=== PATIENT | female | born 1945 | race African-American/Black ===

== ENCOUNTER 2021-03-27 12:13 | Inpatient (IN) | payer MEDICARE, MEDICAID ==
[~2021-03-27] VITALS: Ht 165.1 cm; Wt 79.8 kg
[2021-03-27] MEDS ORDERED: AMLODIPINE 5MG TABLET PO ONE ×2 (12:45→15:15)
[2021-03-27 12:56] LABS: BASOPHILS % 0.9 % (0.0-2.0); EOSINOPHILS % 0.6 % (0.0-5.0); HEMATOCRIT. 43.2 % (36.0-48.0); HEMOGLOBIN. 14.5 g/dL (12.0-16.0); LYMPHOCYTES % 21.1 % (20.0-50.0); MEAN CORPUSCULAR HEMOGLOBIN 28.1 pg (28.0-32.0); MEAN CORPUSCULAR VOLUME 83.5 fL (81.0-99.0); MEAN PLATELET VOLUME 9.1 fl (7.4-10.4); MONOCYTES % 8.3 % (2.0-8.0); NEUTROPHILS % 69.1 % (40.0-76.0); PLATELET 166 x1000/uL (130-400); RED BLOOD CELL COUNT 5.17 mill/uL (4.2-5.4)
[2021-03-27 13:10] LABS: CHLORIDE 108 mEq/L (98-107)
[2021-03-27 13:25] LABS: CLARITY URINE CLEAR (CLEAR); COLOR URINE YELLOW (YELLOW); KETONES URINE NEGATIVE (NEGATIVE); LEUKOCYTE ESTERASE URINE NEGATIVE (NEGATIVE); NITRITE URINE NEGATIVE (NEGATIVE); OCCULT BLOOD URINE TRACE (NEGATIVE); PROTEIN URINE 2+ (NEGATIVE); SPECIFIC GRAVITY URINE 1.006 (1.005-1.030); UROBILINOGEN URINE 0.2 E.U./dL (0.2-1.0)
[2021-03-27] MEDS ORDERED: AMLODIPINE 10MG TABLET PO SCH (15:15)
[2021-03-27] MEDS ORDERED: HYDROCODONE/ACETAMINOPHEN 5/325MG TABLET PO PRN (15:15)
[2021-03-27] MEDS ORDERED: DOCUSATE SODIUM 100MG CAPSULE PO PRN (15:15)
[2021-03-27] MEDS ORDERED: ONDANSETRON HCL 4MG/2ML INJ IV PRN (15:15)
[2021-03-27] MEDS ORDERED: MAGNESIUM/ALUMINUM HYDROXIDE/SIMETHICONE 30ML UDC PO PRN (15:15)
[2021-03-27] MEDS ORDERED: GUAIFENESIN 200MG/10ML SUGAR FREE UDC PO PRN (15:15)
[2021-03-27] MEDS ORDERED: ACETAMINOPHEN 325MG TABLET PO PRN (15:15)
[2021-03-27] MEDS ORDERED: AMLODIPINE 5MG TABLET PO NR (15:30)
[2021-03-27] MEDS ORDERED: NALOXONE HCL 0.4MG/ML VIAL IV PRN (15:30)
[2021-03-27] MEDS: LISINOPRIL 40MG TABLET PO SCH (15:45)
[2021-03-27] MEDS: HYDRALAZINE 20MG/ML VIAL IV PRN (20:11)
[2021-03-27] MEDS ORDERED: ENOXAPARIN 40MG/0.4ML SYR SUBCUT SCH (21:00)
[2021-03-28] VITALS (7 sets, daily range): BP systolic 132–161; BP diastolic 66–72
[2021-03-28] MEDS: CLONIDINE 0.1MG TABLET PO PRN (05:09)
[2021-03-28 08:57] LABS: EOSINOPHILS % 0.5 % (0.0-5.0); HEMATOCRIT. 40.9 % (36.0-48.0); HEMOGLOBIN. 13.4 g/dL (12.0-16.0); LYMPHOCYTES % 24.8 % (20.0-50.0); MEAN CORPUSCULAR HEMOGLOBIN 27.2 pg (28.0-32.0); MEAN CORPUSCULAR VOLUME 83.1 fL (81.0-99.0); MEAN PLATELET VOLUME 9.9 fl (7.4-10.4); MONOCYTES % 9.8 % (2.0-8.0); NEUTROPHILS % 63.9 % (40.0-76.0); PLATELET 182 x1000/uL (130-400); RED BLOOD CELL COUNT 4.92 mill/uL (4.2-5.4); RED CELL DISTRIBUTION WIDTH 15.8 % (11.6-14.6)
[2021-03-28] MEDS: AMLODIPINE 10MG TABLET PO SCH (09:54)
[2021-03-28] MEDS: LISINOPRIL 40MG TABLET PO SCH (09:54)
[2021-03-28 11:15] LABS: CHLORIDE 106 mEq/L (98-107)
[2021-03-28 11:28] LABS: HDL CHOLESTEROL 65 mg/dL (40-59); LDL CHOLESTEROL 196 mg/dL (5-100)
[2021-03-28] MEDS ORDERED: PNEUMOCOCCAL 23-VAL P-SAC VAC 0.5 ML IM ONE (12:00)
[2021-03-28] MEDS ORDERED: INFLUENZA VACCINE 05/PF 0.5 ML SYRINGE IM ONE (12:00)
[2021-03-28] MEDS: HYDRALAZINE HCL 10MG TABLET PO SCH ×2 (16:22→20:12)
[2021-03-28] MEDS: ENOXAPARIN 30MG/0.3ML SYR SUBCUT SCH (20:13)
[2021-03-29] MEDS: HYDRALAZINE 20MG/ML VIAL IV PRN (03:31)
[2021-03-29 04:00] VITALS: BP_SYST 157; BP_SYST 169; BP_DIAS 60; BP_DIAS 78
[2021-03-29] MEDS: HYDRALAZINE HCL 10MG TABLET PO SCH (05:30)
[2021-03-29 08:00] VITALS: BP 160/63
[2021-03-29] MEDS: LISINOPRIL 40MG TABLET PO SCH (08:56)
[2021-03-29] MEDS: AMLODIPINE 10MG TABLET PO SCH (08:57)
[2021-03-29] MEDS: LOSARTAN POTASSIUM 100 MG TABLET PO SCH (11:07)
[2021-03-29 12:00] VITALS: BP 168/64
[2021-03-29 13:24] LABS: CHLORIDE 105 mEq/L (98-107)
[2021-03-29] MEDS: HYDRALAZINE HCL 25MG TABLET PO SCH ×2 (13:30→21:16)
[2021-03-29] MEDS: ASPIRIN 81MG TABLET PO SCH (14:41)
[2021-03-29] MEDS: CARVEDILOL 6.25 MG TABLET PO SCH ×2 (14:42→21:16)
[2021-03-29 16:00] VITALS: BP 118/76
[2021-03-29 16:10] LABS: PHOSPHORUS 2.5 mg/dL (2.5-4.9)
[2021-03-29 20:00] VITALS: BP 129/64
[2021-03-29] MEDS: ATORVASTATIN CALCIUM 40MG TABLET PO SCH (21:16)
[2021-03-29] MEDS: ENOXAPARIN 30MG/0.3ML SYR SUBCUT SCH (21:17)
[2021-03-30] VITALS: BP 138/59
[2021-03-30 04:00] VITALS: BP 151/64
[2021-03-30] MEDS: HYDRALAZINE HCL 25MG TABLET PO SCH ×3 (05:52→22:00)
[2021-03-30 07:31] VITALS: BP 181/70
[2021-03-30] MEDS: CARVEDILOL 6.25 MG TABLET PO SCH ×2 (09:03→20:24)
[2021-03-30] MEDS: LOSARTAN POTASSIUM 100 MG TABLET PO SCH (09:03)
[2021-03-30] MEDS: AMLODIPINE 10MG TABLET PO SCH (09:03)
[2021-03-30] MEDS: ASPIRIN 81MG TABLET PO SCH (09:03)
[2021-03-30 11:46] VITALS: BP 101/53
[2021-03-30 16:00] VITALS: BP 122/54
[2021-03-30 20:00] VITALS: BP 152/89
[2021-03-30] MEDS: ATORVASTATIN CALCIUM 40MG TABLET PO SCH (20:24)
[2021-03-30] MEDS: ENOXAPARIN 30MG/0.3ML SYR SUBCUT SCH (20:25)
[2021-03-31 04:00] VITALS: BP 160/80
[2021-03-31] MEDS: HYDRALAZINE HCL 25MG TABLET PO SCH ×3 (06:19→22:00)
[2021-03-31 08:00] VITALS: BP 190/69
[2021-03-31] MEDS: LOSARTAN POTASSIUM 100 MG TABLET PO SCH (08:51)
[2021-03-31] MEDS: AMLODIPINE 10MG TABLET PO SCH (08:51)
[2021-03-31] MEDS: ASPIRIN 81MG TABLET PO SCH (08:51)
[2021-03-31] MEDS: CARVEDILOL 6.25 MG TABLET PO SCH ×3 (08:52→21:19)
[2021-03-31] MEDS ORDERED: LIDOCAINE HCL 1% 30ML VIAL (10MG/ML) ONE (10:22)
[2021-03-31] MEDS ORDERED: FENTANYL CITRATE/PF 50MCG/ML 2ML VIAL ONE (10:22)
[2021-03-31] MEDS ORDERED: MIDAZOLAM HCL 2 MG/2 ML VIAL ONE (10:22)
[2021-03-31] MEDS ORDERED: HEPARIN 1000 UNITS/ML 10ML ONE (10:23)
[2021-03-31] MEDS ORDERED: VERAPAMIL HCL 2.5 MG/1 ML 2ML VIAL IV ONE (10:23)
[2021-03-31] MEDS ORDERED: IODIXANOL 320MG/ML 100 ML BOTTLE IV ONE (10:24)
[2021-03-31] MEDS ORDERED: ATROPINE SULFATE 1MG/10ML SYR IV PRN (12:15)
[2021-03-31] MEDS: CLONIDINE 0.1MG TABLET PO PRN (13:10)
[2021-03-31 16:00] VITALS: BP 142/68
[2021-03-31 20:00] VITALS: BP 175/70
[2021-03-31] MEDS: ENOXAPARIN 30MG/0.3ML SYR SUBCUT SCH (21:18)
[2021-03-31] MEDS: ATORVASTATIN CALCIUM 40MG TABLET PO SCH (21:19)
[2021-03-31 22:30] VITALS: BP 125/58
[2021-04-01 00:15] VITALS: BP 133/90
[2021-04-01 04:00] VITALS: BP 153/60
[2021-04-01] MEDS: HYDRALAZINE HCL 25MG TABLET PO SCH ×2 (06:46→13:41)
[2021-04-01 06:57] LABS: BASOPHILS % 0.5 % (0.0-2.0); EOSINOPHILS % 1.3 % (0.0-5.0); HEMATOCRIT. 38.4 % (36.0-48.0); HEMOGLOBIN. 12.6 g/dL (12.0-16.0); LYMPHOCYTES % 33.6 % (20.0-50.0); MEAN CORPUSCULAR HEMOGLOBIN 27.1 pg (28.0-32.0); MEAN CORPUSCULAR VOLUME 82.3 fL (81.0-99.0); MEAN PLATELET VOLUME 10.4 fl (7.4-10.4); MONOCYTES % 10.5 % (2.0-8.0); NEUTROPHILS % 54.1 % (40.0-76.0); PLATELET 186 x1000/uL (130-400); RED BLOOD CELL COUNT 4.67 mill/uL (4.2-5.4); RED CELL DISTRIBUTION WIDTH 15.9 % (11.6-14.6)
[2021-04-01 08:00] VITALS: BP 146/59
[2021-04-01] MEDS: CARVEDILOL 6.25 MG TABLET PO SCH (09:13)
[2021-04-01] MEDS: ASPIRIN 81MG TABLET PO SCH (09:13)
[2021-04-01] MEDS: LOSARTAN POTASSIUM 100 MG TABLET PO SCH (09:14)
[2021-04-01] MEDS: AMLODIPINE 10MG TABLET PO SCH (09:14)
[2021-04-01 12:00] VITALS: BP 147/60
[2021-04-01 14:11] VITALS: BP 147/60
== END 2021-04-01 16:15 | disposition home health service (06) | DRG 280 ==
LOC: ER 12:13 → EDBEDREQSVC 22:39 → EDBEDREQTM 22:39 → MICUSO 22:44 → 6WST 03-28 03:22
PROVIDERS: ADMIT Hospitalist; ATTEND Hospitalist
PROC: B211YZZ Fluoroscopy of Multiple Coronary Arteries using Other Contrast (ICD-10-PCS; principal; 2021-03-31)
PROC: 4A023N7 Measurement of Cardiac Sampling and Pressure, Left Heart, Percutaneous Approach (ICD-10-PCS; 2021-03-31)
DX: I21.4 Non-ST elevation (NSTEMI) myocardial infarction (principal); I50.33 Acute on chronic diastolic (congestive) heart failure; N17.9 Acute kidney failure, unspecified; I16.1 Hypertensive emergency; E78.5 Hyperlipidemia, unspecified; E78.00 Pure hypercholesterolemia, unspecified; R51.9 Headache, unspecified; I25.10 Atherosclerotic heart disease of native coronary artery without angina pectoris; I11.0 Hypertensive heart disease with heart failure; Z20.822 Contact with and (suspected) exposure to COVID-19; R53.1 Weakness
CPT/HCPCS: 36415; 71045; 80048; 80053; 80061; 80069; 81003; 83880; 84484; 85025; 87426; 90686; 90732; 93005; 93306; 93458; 93970; 97116; 97162; 97166; 97530; 99291; C1769; C1887; C1893; J0360; J1644; J1650; J2250; J3010; J3490; Q9967

== ENCOUNTER 2024-10-07 16:11 | Inpatient (IN) | payer MEDICARE, MEDICAID ==
[2024-10-07] VITALS (9 sets, daily range): BP systolic 164–189; BP diastolic 60–75; PULSE 65–86; RESP 16–23; TEMP 36.6; O2SAT 93–97
[~2024-10-07] VITALS: Ht 153.4 cm; Wt 76.2 kg
[2024-10-07] MEDS: LABETALOL 5MG/ML 4ML INJ IV ONE (16:47)
[2024-10-07 16:56] LABS: EOSINOPHILS % 1.9 % (0.0-5.0); HEMATOCRIT. 41.6 % (36.0-48.0); HEMOGLOBIN. 13.7 g/dL (12.0-16.0); LYMPHOCYTES % 37.8 % (20.0-50.0); MEAN CORPUSCULAR HGB CONC 33.1 g/dL (31.0-37.0); MEAN CORPUSCULAR VOLUME 81.8 fL (81.0-99.0); MEAN PLATELET VOLUME 9.3 fl (7.4-10.4); MONOCYTES % 7.7 % (2.0-8.0); NEUTROPHILS % 51.6 % (40.0-76.0); PLATELET 184 x1000/uL (130-400); RED BLOOD CELL COUNT 5.08 mill/uL (4.2-5.4)
[2024-10-07 17:04] LABS: CHLORIDE 102 mEq/L (98-107); POTASSIUM 3.9 mEq/L (3.5-5.1); SODIUM 142 mEq/L (136-145)
[2024-10-07 17:05] LABS: CALCIUM 10.2 mg/dL (8.7-10.4); CARBON DIOXIDE 31 mEq/L (21-32)
[2024-10-07 17:10] LABS: CREATININE 1.5 mg/dL (0.6-1.0); GLUCOSE 125 mg/dL (70-105); UREA NITROGEN BLOOD 27 mg/dL (9-23)
[2024-10-07 17:13] LABS: TROPONIN I HIGH SENSITIVITY 45 ng/L (3.0-34)
[2024-10-07] MEDS ORDERED: NICARDIPINE 100 MG in SODIUM CHLORIDE 0.9% 60 ML IV PRN (17:30)
[2024-10-07] MEDS: NICARDIPINE 40MG/200ML PREMIX 200 ML IV PRN (17:46)
[2024-10-07] MEDS: ASPIRIN 325MG EC TABLET PO ONE (17:50)
[2024-10-07] MEDS: CLOPIDOGREL 75MG TABLET PO ONE (17:50)
[2024-10-07 19:44] LABS: INR 0.9; PROTHROMBIN TIME 9.9 sec (9.6-11.0)
[2024-10-07] MEDS ORDERED: MAGNESIUM/ALUMINUM HYDROXIDE/SIMETHICONE 30ML UDC PO PRN (20:00)
[2024-10-07] MEDS ORDERED: NICARDIPINE 50 MG in SODIUM CHLORIDE 0.9% 230 ML IV PRN (20:00)
[2024-10-07] MEDS ORDERED: ACETAMINOPHEN 325MG TABLET PO PRN ×2 (20:00)
[2024-10-07] MEDS ORDERED: IPRATROPIUM/ALBUTEROL 0.5-3(2.5)MG/3ML NEB HHN PRN (20:00)
[2024-10-07] MEDS ORDERED: GUAIFENESIN 200MG/10ML SUGAR FREE UDC PO PRN (20:00)
[2024-10-07] MEDS ORDERED: DOCUSATE SODIUM 100MG CAPSULE PO PRN (20:00)
[2024-10-07] MEDS ORDERED: ONDANSETRON HCL 4MG/2ML INJ IV PRN (20:00)
[2024-10-07 22:23] LABS: PHOSPHORUS 2.7 mg/dL (2.5-4.9)
[2024-10-07] MEDS: ENOXAPARIN 30MG/0.3ML SYR SUBCUT SCH (23:15)
[2024-10-08] VITALS (88 sets, daily range): BP systolic 127–188; BP diastolic 56–137; PULSE 58–87; RESP 0–21; TEMP 36.6–36.8; O2SAT 95–99
[2024-10-08] MEDS: FAMOTIDINE 20MG TABLET PO SCH (00:07)
[2024-10-08 01:20] LABS: TROPONIN I HIGH SENSITIVITY 99 ng/L (3.0-34)
[2024-10-08 07:29] LABS: CHLORIDE 104 mEq/L (98-107)
[2024-10-08 07:30] LABS: CALCIUM 9.6 mg/dL (8.7-10.4); CARBON DIOXIDE 28 mEq/L (21-32); POTASSIUM 4.2 mEq/L (3.5-5.1); SODIUM 143 mEq/L (136-145)
[2024-10-08 07:38] LABS: ALANINE AMINOTRANSFERASE < 7 IU/L (10-49); ALBUMIN 4.2 g/dL (3.2-4.8); ASPARTATE AMINOTRANSFERASE 17 IU/L (<34); BILIRUBIN DIRECT 0.1 mg/dL (<=3.0); BILIRUBIN TOTAL 0.4 mg/dL (0.1-1.0); CHOLESTEROL 260 mg/dL (<200); CREATININE 1.2 mg/dL (0.6-1.0); GLUCOSE 111 mg/dL (70-105); HDL CHOLESTEROL 65 mg/dL (>65); LDL CHOLESTEROL 171 mg/dL (5-100); PROTEIN TOTAL 7.7 g/dL (6.0-8.3); T4 FREE 1.16 ng/dL (0.89-1.76); THYROID STIMULATING HORMONE 2.21 uIU/mL (0.55-4.78); TRIGLYCERIDE 116 mg/dL (0-150); UREA NITROGEN BLOOD 24 mg/dL (9-23)
[2024-10-08 08:06] LABS: TROPONIN I HIGH SENSITIVITY 77 ng/L (3.0-34)
[2024-10-08] MEDS: NICARDIPINE 50 MG in SODIUM CHLORIDE 0.9% 250 ML IV PRN (08:14)
[2024-10-08] MEDS: ASPIRIN 81MG TABLET PO SCH (09:07)
[2024-10-08 09:51] LABS: EOSINOPHILS % 0.9 % (0.0-5.0); HEMATOCRIT. 37.1 % (36.0-48.0); HEMOGLOBIN. 12.3 g/dL (12.0-16.0); LYMPHOCYTES % 27.9 % (20.0-50.0); MEAN CORPUSCULAR HGB CONC 33.3 g/dL (31.0-37.0); MEAN PLATELET VOLUME 8.9 fl (7.4-10.4); MONOCYTES % 7.8 % (2.0-8.0); NEUTROPHILS % 62.4 % (40.0-76.0); PLATELET 191 x1000/uL (130-400); RED BLOOD CELL COUNT 4.58 mill/uL (4.2-5.4); WHITE BLOOD COUNT 5.6 x1000/uL (4.5-11.0)
[2024-10-08] MEDS ORDERED: ATOR-2 PO (09:52)
[2024-10-08] MEDS ORDERED: HYDR25TA78 PO (09:52)
[2024-10-08] MEDS ORDERED: ASPI-1406 PO (09:52)
[2024-10-08] MEDS ORDERED: FURO20TA4 PO ×2 (09:52→11:54)
[2024-10-08] MEDS ORDERED: BENA40TA91 PO (09:52)
[2024-10-08] MEDS ORDERED: TERA10CA4 PO (09:52)
[2024-10-08] MEDS ORDERED: BENAZEPRIL 5MG TABLET PO SCH (10:00)
[2024-10-08] MEDS ORDERED: PNEUMOCOCCAL 20-VAL CONJ-DIP CRM 0.5ML IM ONE (10:00)
[2024-10-08] MEDS: HYDRALAZINE HCL 25MG TABLET PO SCH (10:31)
[2024-10-08] MEDS: CLONIDINE 0.1MG TABLET PO PRN (11:40)
[2024-10-08] MEDS ORDERED: HYDR25TA78 MT (11:45)
[2024-10-08] MEDS ORDERED: TOPUD MT (11:54)
[2024-10-08] MEDS ORDERED: ANAS1TAB49 MT (11:54)
[2024-10-08] MEDS ORDERED: POTA-354 MT (11:54)
[2024-10-08] MEDS ORDERED: ATOR-2 MT (11:54)
[2024-10-08] MEDS ORDERED: ASPI-1497 PO (11:54)
[2024-10-08] MEDS: ATORVASTATIN CALCIUM 40MG TABLET PO SCH (20:34)
[2024-10-09] VITALS (87 sets, daily range): BP systolic 100–179; BP diastolic 55–151; PULSE 63–105; RESP 8–26; TEMP 36.4–36.8; O2SAT 96–100
[2024-10-09 07:18] LABS: BASOPHILS % 0.7 % (0.0-2.0); EOSINOPHILS % 2.1 % (0.0-5.0); HEMATOCRIT. 34.7 % (36.0-48.0); HEMOGLOBIN. 11.3 g/dL (12.0-16.0); LYMPHOCYTES % 29.6 % (20.0-50.0); MEAN CORPUSCULAR HEMOGLOBIN 26.5 pg (28.0-32.0); MEAN CORPUSCULAR HGB CONC 32.5 g/dL (31.0-37.0); MEAN CORPUSCULAR VOLUME 81.6 fL (81.0-99.0); MEAN PLATELET VOLUME 9.5 fl (7.4-10.4); MONOCYTES % 9.4 % (2.0-8.0); NEUTROPHILS % 58.2 % (40.0-76.0); PLATELET 182 x1000/uL (130-400); RED BLOOD CELL COUNT 4.25 mill/uL (4.2-5.4); RED CELL DISTRIBUTION WIDTH 16.4 % (11.6-14.6); WHITE BLOOD COUNT 5.8 x1000/uL (4.5-11.0)
[2024-10-09 07:32] LABS: CALCIUM 9.3 mg/dL (8.7-10.4); POTASSIUM 3.8 mEq/L (3.5-5.1)
[2024-10-09 07:38] LABS: CREATININE 1.2 mg/dL (0.6-1.0)
[2024-10-09] MEDS: AMLODIPINE 10MG TABLET PO SCH (08:39)
[2024-10-09] MEDS: HYDRALAZINE HCL 25MG TABLET PO SCH ×2 (08:39→13:54)
[2024-10-10] VITALS (80 sets, daily range): BP systolic 78–174; BP diastolic 49–156; PULSE 76–117; RESP 5–27; TEMP 36.6–37.1; O2SAT 96–100
[2024-10-10 07:27] LABS: POTASSIUM 4.3 mEq/L (3.5-5.1)
[2024-10-10 07:28] LABS: CALCIUM 9.3 mg/dL (8.7-10.4)
[2024-10-10 07:32] LABS: CREATININE 1.2 mg/dL (0.6-1.0)
[2024-10-10 07:52] LABS: BASOPHILS % 0.6 % (0.0-2.0); EOSINOPHILS % 1.1 % (0.0-5.0); HEMATOCRIT. 37.4 % (36.0-48.0); HEMOGLOBIN. 12.3 g/dL (12.0-16.0); LYMPHOCYTES % 15.8 % (20.0-50.0); MEAN CORPUSCULAR HGB CONC 32.9 g/dL (31.0-37.0); MEAN CORPUSCULAR VOLUME 82.1 fL (81.0-99.0); MONOCYTES % 7.7 % (2.0-8.0); NEUTROPHILS % 74.8 % (40.0-76.0); RED BLOOD CELL COUNT 4.56 mill/uL (4.2-5.4); RED CELL DISTRIBUTION WIDTH 16.3 % (11.6-14.6)
[2024-10-10 08:09] LABS: DIFFERENTIAL COMMENT 1
[2024-10-10 08:59] LABS: PLATELET 213 x1000/uL (130-400)
[2024-10-10] MEDS: HYDRALAZINE HCL 25MG TABLET PO SCH (10:01)
[2024-10-10] MEDS: FUROSEMIDE 20MG/2ML VIAL IVP SCH (10:01)
[2024-10-10] MEDS: HYDRALAZINE HCL 100MG TABLET PO SCH (18:03)
[2024-10-10] MEDS: NITROGLYCERIN OINT 1GM/INCH UDPKT TD SCH (21:59)
[2024-10-11] VITALS (38 sets, daily range): BP systolic 115–170; BP diastolic 49–92; PULSE 82–113; RESP 12–23; TEMP 36–37.2; O2SAT 95–100
[2024-10-11 05:54] LABS: BASOPHILS % 0.5 % (0.0-2.0); EOSINOPHILS % 0.1 % (0.0-5.0); HEMOGLOBIN. 11.3 g/dL (12.0-16.0); LYMPHOCYTES % 14.8 % (20.0-50.0); MEAN CORPUSCULAR HEMOGLOBIN 26.5 pg (28.0-32.0); MEAN CORPUSCULAR HGB CONC 32.2 g/dL (31.0-37.0); MEAN CORPUSCULAR VOLUME 82.5 fL (81.0-99.0); MEAN PLATELET VOLUME 9.8 fl (7.4-10.4); MONOCYTES % 8.6 % (2.0-8.0); PLATELET 212 x1000/uL (130-400); RED BLOOD CELL COUNT 4.24 mill/uL (4.2-5.4); RED CELL DISTRIBUTION WIDTH 16.6 % (11.6-14.6); WHITE BLOOD COUNT 9.6 x1000/uL (4.5-11.0)
[2024-10-11 06:12] LABS: POTASSIUM 3.6 mEq/L (3.5-5.1)
[2024-10-11 06:14] LABS: CALCIUM 9.5 mg/dL (8.7-10.4)
[2024-10-11 06:18] LABS: CREATININE 1.4 mg/dL (0.6-1.0)
[2024-10-11] MEDS: NIFEDIPINE XL 60MG TAB PO SCH (08:24)
[2024-10-11] MEDS: HYDROCHLOROTHIAZIDE 25MG TABLET PO SCH (13:03)
[2024-10-12] VITALS: BP 150/49; PULSE 100; RESP 20; TEMP 36.2; O2SAT 97
[2024-10-12 04:00] VITALS: BP 147/57; PULSE 97; RESP 20; TEMP 37.2; O2SAT 98
[2024-10-12] MEDS ORDERED: HYDRALAZINE 20MG/ML VIAL IV PRN (07:15)
[2024-10-12 07:35] LABS: POTASSIUM 3.5 mEq/L (3.5-5.1)
[2024-10-12 07:37] LABS: CALCIUM 9.5 mg/dL (8.7-10.4)
[2024-10-12 07:42] LABS: CREATININE 1.4 mg/dL (0.6-1.0)
[2024-10-12 08:09] VITALS: BP 156/55; PULSE 96; RESP 20; TEMP 36.6; O2SAT 97
[2024-10-12 11:53] VITALS: BP_SYST 141; BP_SYST 156; BP_DIAS 46; BP_DIAS 55; PULSE 92; PULSE 96; RESP 20; TEMP 36.6; O2SAT 97
[2024-10-12 16:10] VITALS: BP 132/48; PULSE 92; RESP 19; TEMP 36.3; O2SAT 96
[2024-10-12] MEDS: LOSARTAN 25 MG TABLET PO SCH (18:35)
[2024-10-12 20:00] VITALS: BP 107/41; PULSE 95; RESP 20; TEMP 36.3; O2SAT 96
[2024-10-13] VITALS: BP 119/42; PULSE 87; RESP 20; TEMP 36.7; O2SAT 99
[2024-10-13 04:00] VITALS: BP 135/48; PULSE 84; RESP 19; TEMP 37.2; O2SAT 99
[2024-10-13 08:17] VITALS: BP 133/47; PULSE 78; RESP 18; TEMP 36.7; O2SAT 98
[2024-10-13 11:56] VITALS: BP 132/47; PULSE 80; RESP 20; TEMP 36.9; O2SAT 98
[2024-10-13 15:59] VITALS: BP 139/51; PULSE 87; RESP 19; TEMP 36.4; O2SAT 96
[2024-10-13 18:47] VITALS: BP 139/51; PULSE 87; TEMP 97.5; O2SAT 96
== END 2024-10-13 19:40 | DRG 281 ==
LOC: ER 16:11 → CVICU 17:56 → EDBEDREQ 17:58 → EDBEDREQTM 17:58 → ENRESERV 19:12 → CVICU 10-09 07:59 → 7WST 10-11 09:43
PROVIDERS: ADMIT Internal Medicine; ATTEND Internal Medicine
DX: I16.1 Hypertensive emergency (principal); N17.9 Acute kidney failure, unspecified; I21.A1 Myocardial infarction type 2; I50.9 Heart failure, unspecified; N18.32 Chronic kidney disease, stage 3b; I69.398 Other sequelae of cerebral infarction; I13.0 Hypertensive heart and chronic kidney disease with heart failure and stage 1 through stage 4 chronic kidney disease, or unspecified chronic kidney disease; E78.00 Pure hypercholesterolemia, unspecified; I25.10 Atherosclerotic heart disease of native coronary artery without angina pectoris; Z79.899 Other long term (current) drug therapy; Z74.01 Bed confinement status; Z99.3 Dependence on wheelchair
CPT/HCPCS: 36415; 71045; 76770; 80048; 80061; 80076; 82088; 83036; 83735; 83880; 84100; 84244; 84439; 84443; 84484; 85025; 93005; 93306; 93970; 97110; 97162; 97166; 97530; 97535; 99291; J1650; J1940; J3490; J7050

== ENCOUNTER 2024-10-13 20:07 | Inpatient (IN) | payer MEDICARE, MEDICAID ==
[~2024-10-13] VITALS: Ht 152.4 cm; Wt 81.6 kg
[2024-10-13 20:00] VITALS: BP 152/81; PULSE 89; RESP 18; TEMP 37.2; O2SAT 100
[~2024-10-13 20:07] MED LIST: ANAS1TAB49 MT; ASPI-1406 PO; ASPI-1497 PO; ATOR-2 MT; ATOR-2 PO; BENA40TA91 PO; FURO20TA4 PO; HYDR25TA78 MT; HYDR25TA78 PO; POTA-354 MT; TERA10CA4 PO; TOPUD MT
[2024-10-13 20:30] VITALS: BP 152/81; PULSE 89; RESP 18; TEMP 37.3
[2024-10-13] MEDS ORDERED: ONDANSETRON HCL 4MG/2ML INJ IV PRN (20:45)
[2024-10-13] MEDS ORDERED: CLONIDINE 0.1MG TABLET PO PRN (20:45)
[2024-10-13] MEDS ORDERED: GUAIFENESIN 200MG/10ML SUGAR FREE UDC PO PRN (20:45)
[2024-10-13] MEDS ORDERED: MAGNESIUM/ALUMINUM HYDROXIDE/SIMETHICONE 30ML UDC PO PRN (20:45)
[2024-10-13] MEDS ORDERED: ACETAMINOPHEN 325MG TABLET PO PRN (20:45)
[2024-10-13] MEDS ORDERED: IPRATROPIUM/ALBUTEROL 0.5-3(2.5)MG/3ML NEB HHN PRN (20:45)
[2024-10-13] MEDS ORDERED: HYDRALAZINE 10 MG in SODIUM CHLORIDE 0.9% 49.5 ML IV PRN (20:45)
[2024-10-13] MEDS: FAMOTIDINE 20MG TABLET PO SCH (22:51)
[2024-10-13] MEDS: ATORVASTATIN CALCIUM 40MG TABLET PO SCH (22:51)
[2024-10-13] MEDS: NITROGLYCERIN OINT 1GM/INCH UDPKT TD SCH (22:53)
[2024-10-13] MEDS: ENOXAPARIN 30MG/0.3ML SYR SUBCUT SCH (22:53)
[2024-10-14 05:41] LABS: HEMATOCRIT. 33.9 % (36.0-48.0); HEMOGLOBIN. 11.1 g/dL (12.0-16.0); LYMPHOCYTES % 18.1 % (20.0-50.0); MEAN CORPUSCULAR HEMOGLOBIN 26.4 pg (28.0-32.0); MEAN CORPUSCULAR HGB CONC 32.8 g/dL (31.0-37.0); MEAN CORPUSCULAR VOLUME 80.6 fL (81.0-99.0); MEAN PLATELET VOLUME 9.1 fl (7.4-10.4); MONOCYTES % 13.5 % (2.0-8.0); NEUTROPHILS % 65.4 % (40.0-76.0); PLATELET 221 x1000/uL (130-400); RED BLOOD CELL COUNT 4.21 mill/uL (4.2-5.4); RED CELL DISTRIBUTION WIDTH 15.7 % (11.6-14.6); WHITE BLOOD COUNT 5.8 x1000/uL (4.5-11.0)
[2024-10-14 06:01] LABS: CARBON DIOXIDE 26 mEq/L (21-32); CHLORIDE 104 mEq/L (98-107); POTASSIUM 3.6 mEq/L (3.5-5.1); SODIUM 141 mEq/L (136-145)
[2024-10-14 06:02] LABS: CALCIUM 9.5 mg/dL (8.7-10.4)
[2024-10-14 06:06] LABS: CREATININE 1.3 mg/dL (0.6-1.0)
[2024-10-14 06:07] LABS: GLUCOSE 89 mg/dL (70-105); UREA NITROGEN BLOOD 46 mg/dL (9-23)
[2024-10-14 06:08] LABS: ALANINE AMINOTRANSFERASE 13 IU/L (10-49); ALBUMIN 3.7 g/dL (3.2-4.8); ASPARTATE AMINOTRANSFERASE 16 IU/L (<34)
[2024-10-14 06:09] LABS: BILIRUBIN TOTAL 0.4 mg/dL (0.1-1.0); PROTEIN TOTAL 6.9 g/dL (6.0-8.3)
[2024-10-14] MEDS: DOCUSATE SODIUM 100MG CAPSULE PO PRN (06:55)
[2024-10-14 08:00] VITALS: BP_SYST 153; BP_DIAS 51; BP_DIAS 59; PULSE 80; PULSE 87; RESP 18; TEMP 36.4; O2SAT 97
[2024-10-14] MEDS: NIFEDIPINE XL 60MG TAB PO SCH (08:19)
[2024-10-14] MEDS: HYDRALAZINE HCL 100MG TABLET PO SCH (08:19)
[2024-10-14] MEDS: LOSARTAN 25 MG TABLET PO SCH (08:19)
[2024-10-14] MEDS: HYDROCHLOROTHIAZIDE 25MG TABLET PO SCH (08:19)
[2024-10-14] MEDS: ASPIRIN 81MG TABLET PO SCH (08:20)
[2024-10-14 13:48] VITALS: BP 153/59; PULSE 90
[2024-10-14 18:19] VITALS: BP 133/47; PULSE 84
[2024-10-14 20:00] VITALS: BP 144/50; PULSE 85; RESP 18; TEMP 36.6; O2SAT 97
[2024-10-14] MEDS: BISACODYL 10MG SUPP PR PRN (22:15)
[2024-10-15 08:00] VITALS: BP 155/60; PULSE 83; RESP 18; TEMP 36.4; O2SAT 98
[2024-10-15 11:38] LABS: VITAMIN B12 SERUM 370 pg/mL (211-911)
[2024-10-15 20:00] VITALS: BP 147/42; PULSE 83; RESP 18; TEMP 36.2; O2SAT 95
[2024-10-15] MEDS: LOSARTAN 25 MG TABLET PO SCH (21:46)
[2024-10-16 08:00] VITALS: BP 163/64; PULSE 72; RESP 16; TEMP 36.5; O2SAT 100
[2024-10-16 20:00] VITALS: BP 162/49; PULSE 76; RESP 18; TEMP 36.7; O2SAT 98
[2024-10-17 08:00] VITALS: BP 148/53; PULSE 73; RESP 19; TEMP 36.3; O2SAT 100
[2024-10-17 20:00] VITALS: BP 162/49; PULSE 76; RESP 18; TEMP 36.7; O2SAT 98
[2024-10-18 08:00] VITALS: BP 142/51; PULSE 78; RESP 17; TEMP 36.2; O2SAT 99
[2024-10-18 20:30] VITALS: BP 143/50; PULSE 76; RESP 16; TEMP 36.5; O2SAT 76
[2024-10-19 08:00] VITALS: BP 154/55; PULSE 62; RESP 18; TEMP 36.6; O2SAT 100
[2024-10-19 20:00] VITALS: BP 130/43; PULSE 73; RESP 18; TEMP 36.2; O2SAT 100
[2024-10-19] MEDS: LOSARTAN 25 MG TABLET PO SCH (21:59)
[2024-10-19 22:56] VITALS: BP 152/51; PULSE 72
[2024-10-20 08:00] VITALS: BP 135/58; PULSE 66; RESP 18; TEMP 36.8; O2SAT 98
[2024-10-20 21:32] VITALS: BP 134/48; PULSE 85; RESP 18; TEMP 36.7; O2SAT 95
[2024-10-20 21:50] VITALS: BP 128/54; PULSE 75
[2024-10-21 08:00] VITALS: BP 157/50; PULSE 69; RESP 18; TEMP 36.7; O2SAT 98
[2024-10-21 11:33] LABS: CLARITY URINE TURBID (CLEAR); COLOR URINE YELLOW (YELLOW); GLUCOSE URINE NEGATIVE (NEGATIVE); KETONES URINE NEGATIVE (NEGATIVE); LEUKOCYTE ESTERASE URINE 3+ (NEGATIVE); NITRITE URINE NEGATIVE (NEGATIVE); OCCULT BLOOD URINE 2+ (NEGATIVE); PROTEIN URINE 2+ (NEGATIVE); SPECIFIC GRAVITY URINE 1.015 (1.005-1.030)
[2024-10-21 11:50] LABS: BACTERIA URINE 3+; RBC URINE 25-50 /hpf (0-2); SQUAMOUS EPITHELIAL CELL URINE 1+ /lpf (RARE/1+); WBC URINE TNTC /hpf (0-2); YEAST URINE NONE SEEN
[2024-10-21 20:00] VITALS: BP 127/67; PULSE 82; RESP 18; TEMP 36.7; O2SAT 95
[2024-10-22 08:00] VITALS: BP 146/57; PULSE 71; RESP 20; TEMP 36.8; O2SAT 100
[2024-10-22 20:00] VITALS: BP 126/51; PULSE 75; RESP 18; TEMP 36.7; O2SAT 95
[2024-10-23 08:00] VITALS: BP 132/55; PULSE 63; RESP 19; TEMP 36.7; O2SAT 97
[2024-10-23 20:00] VITALS: BP 126/54; PULSE 80; RESP 18; TEMP 36.4; O2SAT 98
[2024-10-24 08:00] VITALS: BP 149/63; PULSE 70; RESP 18; TEMP 36.4; O2SAT 100
[2024-10-24 20:00] VITALS: BP 131/49; PULSE 82; RESP 18; TEMP 37.3; O2SAT 97
[2024-10-25 08:00] VITALS: BP 141/63; PULSE 66; RESP 17; TEMP 36.2; O2SAT 96
[2024-10-25] MEDS: ACETAMINOPHEN 325MG TABLET PO PRN (08:30)
[2024-10-25 20:00] VITALS: BP 139/52; PULSE 71; RESP 18; TEMP 37.6; O2SAT 98
[2024-10-26 05:04] LABS: POTASSIUM 4.3 mEq/L (3.5-5.1)
[2024-10-26 05:05] LABS: CALCIUM 9.3 mg/dL (8.7-10.4)
[2024-10-26 05:10] LABS: CREATININE 1.6 mg/dL (0.6-1.0)
[2024-10-26 08:00] VITALS: BP 153/54; PULSE 69; RESP 18; TEMP 36.7; O2SAT 98
[2024-10-26] MEDS ORDERED: HYDRALAZINE HCL 25MG TABLET PO PRN (10:45)
[2024-10-26 11:16] LABS: BASOPHILS % 0.3 % (0.0-2.0); EOSINOPHILS % 3.2 % (0.0-5.0); HEMATOCRIT. 31.5 % (36.0-48.0); HEMOGLOBIN. 10.3 g/dL (12.0-16.0); LYMPHOCYTES % 41.4 % (20.0-50.0); MEAN CORPUSCULAR HEMOGLOBIN 26.6 pg (28.0-32.0); MEAN CORPUSCULAR HGB CONC 32.6 g/dL (31.0-37.0); MEAN CORPUSCULAR VOLUME 81.3 fL (81.0-99.0); MEAN PLATELET VOLUME 9.6 fl (7.4-10.4); MONOCYTES % 8.4 % (2.0-8.0); NEUTROPHILS % 46.7 % (40.0-76.0); PLATELET 312 x1000/uL (130-400); RED BLOOD CELL COUNT 3.87 mill/uL (4.2-5.4); WHITE BLOOD COUNT 4.6 x1000/uL (4.5-11.0)
[2024-10-26 11:42] LABS: PHOSPHORUS 3.5 mg/dL (2.5-4.9)
[2024-10-26 20:00] VITALS: BP 132/43; PULSE 75; RESP 19; TEMP 36.4; O2SAT 98
[2024-10-27 08:00] VITALS: BP 130/68; PULSE 73; RESP 18; TEMP 36.6; O2SAT 98
[2024-10-27] MEDS ORDERED: LOSA50TA41 MT (10:32)
[2024-10-27] MEDS ORDERED: NIFE-32 PO (10:32)
[2024-10-27] MEDS ORDERED: HYDR100T31 PO (10:32)
[2024-10-27] MEDS ORDERED: HYDR25TA PO (10:32)
[2024-10-27 10:53] VITALS: BP 130/68; PULSE 73; TEMP 97.8; O2SAT 98
[2024-10-27] MEDS ORDERED: NITR-87 MT (11:47)
[2024-10-27] MEDS ORDERED: SULFAMETHOXAZOLE/TRIMETHOPRIM 400/80MG TAB PO SCH (12:30)
[2024-10-27] MEDS ORDERED: NITROFURANTOIN 100MG M/M CAPSULE PO SCH (21:00)
[2024-10-28] MEDS ORDERED: LOSARTAN 50 MG TABLET PO SCH (09:00)
== END 2024-10-27 12:40 | disposition home health service (06) | DRG 280 ==
PROVIDERS: ADMIT Psychiatry & Neurology Neurology; ATTEND Internal Medicine
DX: I16.1 Hypertensive emergency (principal); J96.01 Acute respiratory failure with hypoxia; I21.A1 Myocardial infarction type 2; F01.53 Vascular dementia, unspecified severity, with mood disturbance; I50.30 Unspecified diastolic (congestive) heart failure; N17.9 Acute kidney failure, unspecified; I69.351 Hemiplegia and hemiparesis following cerebral infarction affecting right dominant side; I13.0 Hypertensive heart and chronic kidney disease with heart failure and stage 1 through stage 4 chronic kidney disease, or unspecified chronic kidney disease; N18.32 Chronic kidney disease, stage 3b; I25.10 Atherosclerotic heart disease of native coronary artery without angina pectoris; E87.70 Fluid overload, unspecified; E78.5 Hyperlipidemia, unspecified; R32 Unspecified urinary incontinence; R15.9 Full incontinence of feces; L98.429 Non-pressure chronic ulcer of back with unspecified severity; Z91.81 History of falling; Z99.3 Dependence on wheelchair
CPT/HCPCS: 36415; 80048; 80053; 81003; 82607; 83735; 84100; 84443; 85025; 87077; 87186; 92523; 92610; 97110; 97112; 97162; 97166; 97530; 97535; 97542; J1650